=== PATIENT | male | born 1940 | race Caucasian/White ===

== ENCOUNTER 2021-06-08 11:36 | Emergency (ER) | payer MEDICARE, BC ==
[2021-06-08 15:34] LABS: Hemoglobin 12.8 g/dL (13.5-17.5); Mean Corpuscular HGB CONC 33.6 g/dL (32.0-36.0); Mean Corpuscular Volume 101.1 fl (81.2-95.1); Mean Platelet Volume 11.1 fl (7.4-10.4); Platelet Count 297 10x3/uL (150-450); RBC Distribution Width 14.8 % (11.5-14.5); Red Blood Cell (RBC) Count 3.77 10x6/uL (4.32-5.72); White Blood Cell (WBC) Count 20.6 10x3/uL (3.5-10.5)
[2021-06-08 15:39] LABS: ALT (SGPT) 33 U/L (8-55); AST (SGOT) 32 U/L (5-34); Alkaline Phosphatase 77 U/L (40-110); Anion Gap 12 mmol/L (10-20); BUN (Urea Nitrogen) 22 mg/dL (8.4-25.7); Calc. Creatinine Clearance 0 mL/min (70-130); Calcium 8.8 mg/dL (7.8-10.44); Carbon Dioxide 33 mmol/L (23-31); Chloride 106 mmol/L (98-107); Globulin 2.8 g/dL (2.4-3.5); Glucose 102 mg/dL (83-110); Protein, Total 5.8 g/dL (5.8-8.1); Sodium 147 mmol/L (136-145)
[2021-06-08 15:41] LABS: MDiff Complete? YES; Manual Diff?? YES
[2021-06-08 16:31] LABS: Band 1 % (5-11); Lymphocytes 8 % (21-51); Monocytes 4 % (0-10); Neutrophil 87 % (42-75)
[2021-06-08 16:32] LABS: Platelet Morphology Comment Appears Adequate; RBC Morphology Normal
[2021-06-08 17:14] LABS: SARS-CoV-2 NAA Rapid Test Not Detected (NotDetected)
== END 2021-06-08 17:16 | disposition short-term general hospital (02) ==
LOC: CSHERS 11:36
DX: S72.002A Fracture of unspecified part of neck of left femur, initial encounter for closed fracture (principal); I10 Essential (primary) hypertension; Z79.82 Long term (current) use of aspirin; Z79.899 Other long term (current) drug therapy; Z20.822 Contact with and (suspected) exposure to COVID-19; W01.0XXA Fall on same level from slipping, tripping and stumbling without subsequent striking against object, initial encounter
CPT/HCPCS: 70450; 71045; 72125; 72131; 72170; 80053; 85025; U0002